=== PATIENT | female | born 1950 | race Caucasian/White ===

== ENCOUNTER 2017-04-02 12:49 | Observation (INO) | payer MEDICAID ==
[2017-04-02] VITALS (10 sets, daily range): BP systolic 103–140; BP diastolic 57–69; PULSE 55–60; RESP 16–20; TEMP 97–98.4; O2SAT 92–98
[~2017-04-02] VITALS: Ht 162.6 cm; Wt 80.0 kg
[~2017-04-02 12:49] MED LIST: ALBUAER3 INH; ASPI-110 PO; ATOR40TA16 PO; CETI10 PO; FENO48TA PO; FURO20TA PO; IPRASOL INH; METO25TA3 PO; NITR1SUB3 SL; OMEP20TA PO; TRAM50TA PO; VALS1TAB64 PO
--- NOTE | 2017-04-02 13:54 | PD ---
HPI Chief Complaint: Chest Pain Time Seen by Provider: 13:32 Travel History International Travel<30 days: No Contact w/Intl Traveler<30days: No Traveled to known affect area: No History of Present Illness HPI 66yo F with PMH of CAD s/p cardiac stent presents to the ED with c/o left sided chest pain about an hour ago that started off as sharp but now is more dull, achy. Associated with sob. Denies any n/v, diaphoresis, radiation of pain. Pt also with 3 days of right sided abdominal pain. Denies any dysuria, hematuria, diarrhea. 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 Took 81mg of aspirin. PFSH Past Medical History Cancer: Yes (SKIN) Cardiac Catheterization: Yes (4 STENTS PLACED) Cardiovascular Problems: Yes High Cholesterol: Yes Chest Pain: Yes COPD: Yes Cerebrovascular Accident: Yes (TIA X 3) Coronary Artery Disease: Yes Diabetes: No Diminished Hearing: No Endocrine: No Gastrointestinal Disorders: Yes (GERD, HX DIVERTICULITIS) GERD: Yes Genitourinary: No Hepatitis: No Hiatal Hernia: Yes Hypertension: Yes Immune Disorder: No Musculoskeletal: Yes (ARTHRITIS) Neurologic: Yes (HX TIA) Psychiatric: Yes (CLAUSTRAPHOBIA) Reproductive: No Respiratory: Yes (COPD) Immunizations Current: No Thyroid Disease: No Tetanus Vaccination: > 5 Years Influenza Vaccination: No (allergies) Past Surgical History Abdominal Surgery: Yes (BOWEL RESECT X2, [employer], LEFT ING HERNIA REPAIR) AICD: No Body Medical Devices: CARDIAC STENTS Cardiac Surgery: No Cholecystectomy: Yes Ear Surgery: No Endocrine Surgery: No Eye Surgery: No Genitourinary Surgery: No Gynecologic Surgery: Yes (TAHBSO) Hysterectomy: Yes Joint Replacement: Yes (RIGHT HIP) Oral Surgery: No Pacemaker: No Thoracic Surgery: No Other Surgery: Yes Family History Family Myocardial Infarction: No Social History Alcohol Use: No Tobacco Use: No (QUIT 02/2014) Substance Use: No Allergies-Medications (Allergen,Severity, Reaction): Coded Allergies: Pneumococcal Vaccine (Verified Allergy, Severe, swollen, 04/02/17) Flu Vaccine (Verified Allergy, Mild, swollen, 04/02/17) Ibuprofen (Verified Adverse Reaction, Severe, Rash, 04/02/17) raises liver enzymes as well Reported Meds & Prescriptions Reported Meds & Active Scripts Active Omeprazole 20 Mg Tab 20 Mg PO DAILY Valsartan 80 Mg Tab 80 Mg PO DAILY Furosemide 20 Mg Tab 20 Mg PO DAILY Reported Zofran (Ondansetron HCl) 4 Mg Tab 4 Mg .ROUTE Q6HR Hydrocodone-Acetaminophen 5-325 mg Tab 1 Tab .ROUTE Q4HR Isosorbide Mononitrate ER (Isosorbide Mononitrate) 30 Mg [place] 30 Mg .ROUTE Cetirizine (Cetirizine HCl) 10 Mg Tab 10 Mg PO DAILY PRN Aspirin 81 (Aspirin) 81 Mg Tabdr 81 Mg PO DAILY Tramadol (Tramadol HCl) 50 Mg Tab 50 Mg PO Q6HR PRN Metoprolol Tartrate 25 Mg Tab 25 Mg PO BID Duoneb (Ipratropium-Albuterol Neb) 0.5-2.5 Mg/3 Ml Neb 1 Nebule INH Q4HR NEB Fenofibrate 48 Mg Tab 48 Mg PO DAILY Proair Hfa 8.5 GM Inh (Albuterol Sulfate) 90 Mcg/Act Aer 2 Puff INH Q4-6H PRN 108 mcg/actuation Atorvastatin (Atorvastatin Calcium) 40 Mg Tab 40 Mg PO HS Review of Systems Except as stated in HPI: all other systems reviewed are Neg Physical Exam Narrative GENERAL: 66yo F not in distress. SKIN: Focused skin assessment warm/dry. HEAD: Atraumatic. Normocephalic. CARDIOVASCULAR: Regular rate and rhythm. No murmur appreciated. RESPIRATORY: No accessory muscle use. Clear to auscultation. Breath sounds equal bilaterally. GASTROINTESTINAL: Abdomen soft, +TTP RUQ and RLQ. No rebound tenderness or guarding. MUSCULOSKELETAL: No obvious deformities. No clubbing. No cyanosis. No edema. NEUROLOGICAL: Awake and alert. No obvious cranial nerve deficits. Motor grossly within normal limits. Normal speech. PSYCHIATRIC: Appropriate mood and affect; insight and judgment normal. Data Data Last Documented VS Vital Signs Date Time Temp Pulse Resp B/P Pulse Ox O2 Delivery O2 Flow Rate FiO2 04/02/17 15:35 97.8 60 17 130/62 98 Room Air Orders Electrocardiogram (04/02/17 ) Basic Metabolic Panel (Bmp) (04/02/17 13:46) Ckmb (Isoenzyme) Profile (04/02/17 13:46) Complete Blood Count With Diff (04/02/17 13:46) Magnesium (Mg) (04/02/17 13:46) Prothrombin Time / Inr (Pt) (04/02/17 13:46) Act Partial Throm Time (Ptt) (04/02/17 13:46) Troponin I (04/02/17 13:46) Chest, Single Ap (04/02/17 13:46) Ecg Monitoring (04/02/17 13:46) Bilateral Bp Monitoring (04/02/17 13:46) Iv Access Insert/Monitor (04/02/17 13:46) Oximetry (04/02/17 13:46) Oxygen Administration (04/02/17 13:46) Aspirin (Aspirin) (04/02/17 14:00) Sodium Chloride 0.9% Flush (Ns Flush) (04/02/17 14:00) Ct Abd/Pel W Iv Contrast(Rout) (04/02/17 ) Aspirin Chew (Aspirin Chew) (04/02/17 14:00) Urinalysis - C+S If Indicated (04/02/17 13:54) CKMB (04/02/17 13:11) CKMB% (04/02/17 13:11) Iohexol 350 Inj (Omnipaque 350 Inj) (04/02/17 15:38) Morphine Inj (Morphine Inj) (04/02/17 16:15) Admit Order (Ed Use Only) (04/02/17 16:28) Labs Laboratory Tests Test 04/02/17 13:11 White Blood Count 8.9 TH/MM3 Red Blood Count 4.32 MIL/MM3 Hemoglobin 13.2 GM/DL Hematocrit 38.0 % Mean Corpuscular Volume 87.8 FL Mean Corpuscular Hemoglobin 30.5 PG Mean Corpuscular Hemoglobin 34.7 % Concent Red Cell Distribution Width 13.7 % Platelet Count 275 TH/MM3 Mean Platelet Volume 7.9 FL Neutrophils (%) (Auto) 57.4 % Lymphocytes (%) (Auto) 31.6 % Monocytes (%) (Auto) 6.5 % Eosinophils (%) (Auto) 4.0 % Basophils (%) (Auto) 0.5 % Neutrophils # (Auto) 5.1 TH/MM3 Lymphocytes # (Auto) 2.8 TH/MM3 Monocytes # (Auto) 0.6 TH/MM3 Eosinophils # (Auto) 0.4 TH/MM3 Basophils # (Auto) 0.0 TH/MM3 CBC Comment DIFF FINAL Differential Comment Prothrombin Time 10.6 SEC Prothromb Time International 1.0 RATIO Ratio Activated Partial 28.5 SEC Thromboplast Time Urine Color COLORLESS Urine Turbidity CLEAR Urine pH 5.5 Urine Specific [place] 1.001 Urine Protein NEG mg/dL Urine Glucose (UA) NEG mg/dL Urine Ketones NEG mg/dL Urine Occult Blood NEG Urine Nitrite NEG Urine Bilirubin NEG Urine Urobilinogen LESS THAN 2.0 MG/DL Urine Leukocyte Esterase NEG Urine RBC LESS THAN 1 /hpf Urine WBC LESS THAN 1 /hpf Urine Squamous Epithelial <1 /hpf Cells Microscopic Urinalysis Comment CULT NOT INDICATED Sodium Level 142 MEQ/L Potassium Level 3.9 MEQ/L Chloride Level 106 MEQ/L Carbon Dioxide Level 29.4 MEQ/L Anion Gap 7 MEQ/L Blood Urea Nitrogen 14 MG/DL Creatinine 0.77 MG/DL Estimat Glomerular Filtration 75 ML/MIN Rate Random Glucose 89 MG/DL Calcium Level 9.5 MG/DL Magnesium Level 2.0 MG/DL Total Creatine Kinase 129 U/L Creatine Kinase MB 1.7 NG/ML Troponin I LESS THAN 0.02 NG/ML MDM Medical Decision Making Medical Screen Exam Complete: Yes Emergency Medical Condition: Yes Interpretation(s) EKG: Sinus bradycardia at 58bpm. Normal axis. No ST segment elevation or depression Differential Diagnosis ACS vs. pneumonia vs. colitis vs. appendicitis Narrative Course 66yo F with CAD s/p cardiac stent here with left sided chest pain. Started when she bend down and it was sharp in the beginning but it is more achy now. Labs reviewed, no leukocytosis. Troponin negative. CXR showed stable left lung atelectasis versus scarring. No acute cardiopulmonary disease. Pt also with secondary complaint of right abdominal pain. UA negative. CTa/p showed diverticulosis without diverticulitis. Small anterior abdominal wall hernia Cystic mass in left kidney that is increase in size from prior. Informed pt about this and recommend outpatient renal mass CT or MRI to evaluate for enhancement. Pt reevaluated after morphine and abdominal pain and chest pain are gone. I am more concern with her chest pain and her last stress test was at least a year ago. Will do serial EKG and cardiac enzyme in chest pain center. Diagnosis Primary Impression: Chest pain Qualified Code: R07.9 - Chest pain, unspecified type Admitting Information Admitting Physician Requests: Observation Additional Instructions: Please follow up with your PMD regarding possible renal mass CT or MRI to evaluate for enhancement of the left kidney cystic mass. Scripts Nitroglycerin SL 0.4 Mg Subl0.4 Mg SL DIRECTED PRN (CHEST PAIN) #100 TAB.SL Ref 0 ONE TABLET UNDER THE TONGUE NEEDED FOR CHEST PAIN, MAY REPEAT EVERY FIVE MINUTES FOR A TOTAL OF 3 DOSES OR CALL 911 IF NO RELIEF Prov:Aleta Spann 04/03/17 Tatiana Dinh DO Apr 02, 2017 13:54
[2017-04-02] MEDS ORDERED: SODIUM CHLORIDE 0.9% FLUSH 10 ML FLUSH IVF PRN (14:00)
[2017-04-02] MEDS ORDERED: ASPIRIN 325 MG TAB PO ONE (14:00)
[2017-04-02] MEDS ORDERED: ASPIRIN 81 MG CHEW TAB CHEW ONE (14:00)
--- NOTE | 2017-04-02 14:16 | RADRPT ---
EXAM DATE/TIME: 04/02/2017 13:52 [facility] COMPARISON: CHEST SINGLE AP, October 31, 2015, 18:44. INDICATIONS : Chest pain. MEDICAL HISTORY : None. SURGICAL HISTORY : Stents ENCOUNTER: Initial ACUITY: 1 day PAIN SCORE: 4/10 LOCATION: Left chest FINDINGS: Minimal airspace disease at the left lung base consistent with atelectasis or scarring unchanged from prior exam. Cardiomegaly some contours are within normal limits. The remainder of the exam is unchan ged. CONCLUSION: 1. Stable left lung base atelectasis versus scarring. 2. No acute cardiopulmonary disease. Rodger Castellanos MD on April 02, 2017 at 14:11 Board Certified Radiologist. This report was verified electronically.
[2017-04-02 14:21] LABS: AUTOMATED NEUTROPHIL # 5.1 TH/MM3 (1.8-7.7); BASOPHIL % 0.5 % (0.0-2.0); EOSINOPHIL # 0.4 TH/MM3 (0-0.4); HEMO FLAGS DIFF FINAL; LYMPH % 31.6 % (9.0-44.0); LYMPHOCYTE # 2.8 TH/MM3 (1.0-4.8); MEAN CELL VOLUME 87.8 FL (80.0-100.0); MEAN CORPUSCULAR HEMOGLOBIN 30.5 PG (27.0-34.0); MEAN CORPUSCULAR HGB CONC 34.7 % (32.0-36.0); MONO % 6.5 % (0.0-8.0); NEUT % 57.4 % (16.0-70.0); PLATELET COUNT 275 TH/MM3 (150-450); RED BLOOD COUNT 4.32 MIL/MM3 (4.00-5.30); RED CELL DISTRIBUTION WIDTH 13.7 % (11.6-17.2); WHITE BLOOD COUNT 8.9 TH/MM3 (4.0-11.0)
[2017-04-02 14:22] LABS: BLOOD, URINE NEG (NEG); COMMENT (UR) CULT NOT INDICATED; CULTURE IF INDICATED CULT NOT INDICATED; GLUCOSE,URINE NEG (NEG); KETONE, URINE NEG (NEG); NITRITE,URINE NEG (NEG); PH, URINE 5.5 (5.0-8.5); SQUAMOUS EPITHELIAL CELL URINE <1 /hpf (0-5); URINE COLOR COLORLESS (YELLW/STRAW)
[2017-04-02 14:29] LABS: APTT (PATIENT) 28.5 SEC (24.3-30.1); PROTHROMBIN TIME - PATIENT 10.6 SEC (9.8-11.6)
[2017-04-02 14:37] LABS: ANION GAP 7 MEQ/L (5-15); BICARBONATE 29.4 MEQ/L (21.0-32.0); BLOOD UREA NITROGEN 14 MG/DL (7-18); CHLORIDE 106 MEQ/L (98-107); GLOMERULAR FILTRATION RATE 75 ML/MIN (>89); POTASSIUM 3.9 MEQ/L (3.5-5.1); SODIUM (NA) 142 MEQ/L (136-145)
[2017-04-02 14:40] LABS: CREATINE KINASE 129 U/L (26-192)
[2017-04-02 14:52] LABS: CKMB 1.7 NG/ML (0.5-3.6)
[2017-04-02] MEDS ORDERED: IOHEXOL 350 MG/ML 10 ML VIAL (for RAD DIAG) IV ONE (15:38)
[2017-04-02] MEDS ORDERED: MORPHINE SULFATE 4 MG/ML INJ IV PUSH ONE (16:15)
--- NOTE | 2017-04-02 16:34 | RADRPT ---
EXAM DATE/TIME: 04/02/2017 15:23 [facility] COMPARISON: CT ABDOMEN & PELVIS W CONTRAST, August 31, 2014, 2:49. INDICATIONS : Bilateral lower quadrant pain for 3 days. IV CONTRAST: 94 cc Omnipaque 350 (iohexol) IV ORAL CONTRAST: No oral contrast ingested. RADIATION DOSE: 21.95 CTDIvol (mGy) MEDICAL HISTORY : Hypertension. Chronic obstructive pulmonary disease. SURGICAL HISTORY : Hysterectomy. Appendectomy.Cholecystectomy.Bowel resection, inguinal hernia repair ENCOUNTER: Initial ACUITY: 3 days PAIN SCALE: 4/10 LOCATION: Bilateral lower quadrant TECHNIQUE: Volumetric scanning of the abdomen and pelvis was performed. Using automated exposure control and ad justment of the mA and/or kV according to patient size, radiation dose was kept as low as reasonably achievable to obtain optimal diagnostic quality images. FINDINGS: LOWER LUNGS: The visualized lower lungs are clear. LIVER: Homogeneous density without lesion. There is no dilation of the biliary tree. Gallbladder is surgica lly absent. SPLEEN: Normal size without lesion. PANCREAS: Within normal limits. KIDNEYS: There is a 2.4 x 2.3 cm indeterminate density cystic mass arising from the mid left kidney measuring 32 Hounsfield units. This is slightly increased in size from 2.0 x 2.0 cm on prior exam. Subcentimete r cystic lesion in the inferior pole of the left kidney is too small to fully characterize. kidneys a re otherwise symmetrical in size and demonstrate symmetrical enhancement without evidence for hydrone phrosis. ADRENAL GLANDS: Within normal limits. VASCULAR: There is no aortic aneurysm. BOWEL/MESENTERY: Postsurgical changes of prior appendectomy or and partial small bowel resection are noted. The bowel appears somewhat anterior to the anterior abdominal wall likely reflecting adhesions. Otherwise demon strate no evidence for obstruction or significant bowel wall thickening. There is moderate sigmoid an d scattered descending colonic diverticula without significant inflammatory change to suggest diverti culitis. ABDOMINAL WALL: There is a small periumbilical fat containing anterior abdominal hernia. Slightly more cephalad there is a second small mid anterior abdominal wall hernia with partial eventration of a small portion of the transverse colon. This is approximately 5 cm cephalad to the umbilicus. There is no significant i nflammatory changes or colonic wall thickening. RETROPERITONEUM: There is no lymphadenopathy. BLADDER: Bladder is moderately distended but otherwise unremarkable. REPRODUCTIVE: Uterus is surgically absent. INGUINAL: There is no lymphadenopathy or hernia. MUSCULOSKELETAL: There are no abnormal lytic or blastic bony lesions. Right hip arthroplasty in place. CONCLUSION: 1. Postsurgical features of prior appendectomy and partial small bowel resection without evidence for bowel obstruction. 2. Small anterior abdominal wall hernias with a small mid line hernia approximately 5 cm cephalad to the umbilicus with partial eventration of the transverse colon anterior wall. The colon does not appe ar abnormal in this region. Correlation with physical exam is recommended. 3. 2.4 x 2.3 cm indeterminate density cystic mass arising from the mid left kidney which has minimall y increased in size from 2.0 x 2.0 cm in 2014. Recommend renal mass CT or MRI examination to evaluate for enhancement. 4. Moderate sigmoid and scattered colonic diverticulosis without definitive evidence for diverticulit is. Rodger Castellanos MD on April 02, 2017 at 15:55 Board Certified Radiologist. This report was verified electronically.
--- NOTE | 2017-04-02 16:59 | EKG ---
Date Performed: 04/02/2017 Time Performed: 13:11:45 PTAGE: 66 years EKG: SINUS BRADYCARDIA BORDERLINE ECG PREVIOUS TRACING : 11/01/2015 00.24 No significant change from previous tracing noted. DOCTOR: Clay Boone Interpretating Date/Time 04/02/2017 16:55:43
[2017-04-02] MEDS ORDERED: ONDANSETRON HCL 4 MG/2 ML VIAL IV PRN (17:30)
[2017-04-02] MEDS ORDERED: NITROGLYCERIN 0.4 MG SL 25 TABS/BTL SL PRN (17:30)
[2017-04-02] MEDS ORDERED: ACETAMINOPHEN 500 MG CPLT PO PRN (17:30)
[2017-04-02 18:11] LABS: CREATINE KINASE 113 U/L (26-192)
[2017-04-02 18:24] LABS: CKMB 2.1 NG/ML (0.5-3.6)
--- NOTE | 2017-04-02 18:33 | HHI.HP ---
HPI Primary Care Physician Kimberley Humphrey MD Chief Complaint Chest pain History of Present Illness 66-year-old female pertinent medical history of coronary artery disease including 4 cardiac stents, hyperlipidemia, hypertension, and TIA 3% emergency room for further evaluation of chest pain. Onset this afternoon while shopping. Location left anterior chest. Described as sharp pain initially then changing to a dull ache. No radiation of pain. Associated symptoms including dizziness, nausea, and diaphoresis. Precipitating factors with bending over and upon standing chest pain as stated above began. Endorses the same chest discomfort she had prior to cardiac catheterizations in 2004. Relieving factors IV pain medication provided the ER. 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 Reports a couple months ago she was scheduled for elective cardiac catheterization although was sick and had to be rescheduled. Since this time she has actually had no chest discomfort and was waiting for a regular cardiology appointment. Last stress test completed 1 year ago. ( Aleta Spann) Review of Systems General: Increasing fatigue 3 days. No weakness, fever, chills, recent illness , or change in appetite. HEENT: No [place], no vision changes, chronic nasal congestion, no drainage, no dysphasia CV: As stated above. Currently she is chest pain and pressure free. No intermittent leg pain and dizziness has since improved. RESP: History of COPD states COPD is stable on current inhaler regimen. No increasing cough or wheeze. No SOB. GI: Nausea has improved. Although endorses last evening she was nauseous throughout dinner. No bowel changes such as diarrhea, constipation, distention , melena, or blood in stool. last bowel movement this a.m. reports dull pain right lower quadrant. History of diverticulitis. : No dysuria, urgency, frequency, or hematuria EXT: No lower leg edema, no paraesthesias MS: Chronic right hip and right knee pain, 1 month right shoulder pain radiating to her neck and right arm, follows with pain management. Ambulates independently. NEURO: No difficulty with balance, LOC, motor/sensory deficits PSYCH: No anxiety, depression SKIN: No rashes, no concerning lesions (Aleta Spann) Past Family Social History Allergies: Coded Allergies: Pneumococcal Vaccine (Verified Allergy, Severe, swollen, 04/02/17) Flu Vaccine (Verified Allergy, Mild, swollen, 04/02/17) Ibuprofen (Verified Adverse Reaction, Severe, Rash, 04/02/17) raises liver enzymes as well Past Medical History CAD, 4 cardiac stents, GERD, diverticulitis, COPD, hyperlipidemia, hypertension , TIA 3, chronic right hip pain, chronic right knee pain Past Surgical History Bowel resections 2, cholecystectomy, left inguinal hernia repair, right hip appear, hysterectomy, appendectomy Reported Medications Active Omeprazole 20 Mg Tab 20 Mg PO DAILY Valsartan 80 Mg Tab 80 Mg PO DAILY Furosemide 20 Mg Tab 20 Mg PO DAILY Cetirizine (Cetirizine HCl) 10 Mg Tab 10 Mg PO DAILY PRN Aspirin 81 (Aspirin) 81 Mg Tabdr 81 Mg PO DAILY Tramadol (Tramadol HCl) 50 Mg Tab 50 Mg PO PRN EVERY 6 HOURS PRN Nitroglycerin SL (Nitroglycerin) 0.4 Mg Subl 0.4 Mg SL DIRECTED PRN ONE TABLET UNDER THE TONGUE NEEDED FOR CHEST PAIN, MAY REPEAT EVERY FIVE MINUTES FOR A TOTAL OF 3 DOSES OR CALL 911 IF NO RELIEF Metoprolol Tartrate 25 Mg Tab 25 Mg PO BID Duoneb (Ipratropium-Albuterol Neb) 0.5-2.5 Mg/3 Ml Neb 1 Nebule INH Q4HR when necessary NEB Fenofibrate 48 Mg Tab 48 Mg PO DAILY Proair Hfa 8.5 GM Inh (Albuterol Sulfate) 90 Mcg/Act Aer 2 Puff INH Q4-6H PRN 108 mcg/actuation Atorvastatin (Atorvastatin Calcium) 40 Mg Tab 40 Mg PO HS Imdur 30mg QD Amlodipine 10mg QD hydrocodone/acetaminophen 1 tablet Q4H prn moderate pain ondansetron 4mg po prn TAKES A DAILY INHALER-SHE DOES NOT REMEMBER NAME OF MEDICATION Active Ordered Medications Current Medications Medications (Trade) Dose Ordered Sig/Vivi Route Start Time Stop Time Status Last Admin (NS Flush) 2 ml UNSCH PRN IVF 04/02/17 14:00 04/02/17 14:00 (NS Flush) 2 ml BID IV FLUSH 04/02/17 21:00 (Tylenol) 500 mg Q4H PRN PO 04/02/17 17:30 (Zofran Inj) 4 mg Q6H PRN IV 04/02/17 17:30 (Nitrostat Sl) 0.4 mg Q5M PRN SL 04/02/17 17:30 (Aspirin) 325 mg DAILY PO 04/03/17 09:00 Family History MomCABG 4 age 87 did not have prior known coronary artery blockages, sister at age 75 coronary artery disease did not have prior known coronary artery blockages, is unsure of brother has coronary artery disease. Social History Known hypertension, coronary artery disease, hyperlipidemia. No known diabetes. Quit smoking 02/2014started smoking at age 16, wasn't until her late 20s she began to smoke 1 pack every 23 days. Denies any alcohol or illegal drug use. Ambulates independently, . Past cardiac testing 05/28-Cardiac catheterization (Dr. Zamudio)-75% occlusion of the smaller arteries area cannot be stented and she is being medically managed. 04/16/12-cardiac catheterizationstent to RCA 11/20/04-cardiac catheterization-stent to mid circumflex, distal RCA, [place]. Chemical stress test completed with Dr. Torre approximately one year ago-she reports test unremarkable (Aleta Spann) Physical Exam Vital Signs Vital Signs Date Time Temp Pulse Resp B/P Pulse Ox O2 Delivery O2 Flow Rate FiO2 04/02/17 17:46 98 21 04/02/17 17:00 97.7 59 18 132/67 Room Air 04/02/17 16:31 17 04/02/17 15:35 97.8 60 17 130/62 98 Room Air 04/02/17 13:55 97 Room Air 04/02/17 13:55 18 97 Room Air 04/02/17 13:54 58 18 118/69 97 Room Air 110/66 04/02/17 13:40 58 18 95 Room Air 04/02/17 12:52 98.1 60 16 140/61 94 Physical Exam GENERAL: Alert WN, WD, NAD, pleasant, , female who appears older than stated age. HEAD: NC, AT EYES: Sclera clear, conjunctiva without injection, pupils equal and round ENT: Mucous membranes pink and moist NECK: Supple, no masses, trachea midline CV: RRR, without murmur, rub, gallop, no JVD, S1-S2 no S3-S4. No carotid bruits. RESP: Diminished lungs throughout bilateral, no crackles, wheeze, rhonchi, symmetrical chest rise, nonlabored, able to speak in full sentences EXT: Pulses +24, no dependent edema MS: Normal tone 4 extremities, nontender, no obvious deformities, full range of motion NEURO: CN II through CN XII grossly intact, motor strength 5/5, gait WNL PSYCH: A+O 3, pleasant affect, appropriate speech, appropriate mood and affect , insight and judgment SKIN: Normal turgor, normal texture, no lesions, no rashes, brisk cap refill, even hair distribution Laboratory Laboratory Tests Test 04/02/17 13:11 White Blood Count 8.9 Red Blood Count 4.32 Hemoglobin 13.2 Hematocrit 38.0 Mean Corpuscular Volume 87.8 Mean Corpuscular Hemoglobin 30.5 Mean Corpuscular Hemoglobin 34.7 Concent Red Cell Distribution Width 13.7 Platelet Count 275 Mean Platelet Volume 7.9 Neutrophils (%) (Auto) 57.4 Lymphocytes (%) (Auto) 31.6 Monocytes (%) (Auto) 6.5 Eosinophils (%) (Auto) 4.0 Basophils (%) (Auto) 0.5 Neutrophils # (Auto) 5.1 Lymphocytes # (Auto) 2.8 Monocytes # (Auto) 0.6 Eosinophils # (Auto) 0.4 Basophils # (Auto) 0.0 CBC Comment DIFF FINAL Differential Comment Prothrombin Time 10.6 Prothromb Time International 1.0 Ratio Activated Partial 28.5 Thromboplast Time Urine Color COLORLESS Urine Turbidity CLEAR Urine pH 5.5 Urine Specific [place] 1.001 Urine Protein NEG Urine Glucose (UA) NEG Urine Ketones NEG Urine Occult Blood NEG Urine Nitrite NEG Urine Bilirubin NEG Urine Urobilinogen LESS THAN 2.0 Urine Leukocyte Esterase NEG Urine RBC LESS THAN 1 Urine WBC LESS THAN 1 Urine Squamous Epithelial <1 Cells Microscopic Urinalysis Comment CULT NOT INDICATED Sodium Level 142 Potassium Level 3.9 Chloride Level 106 Carbon Dioxide Level 29.4 Anion Gap 7 Blood Urea Nitrogen 14 Creatinine 0.77 Estimat Glomerular Filtration 75 Rate Random Glucose 89 Calcium Level 9.5 Magnesium Level 2.0 Total Creatine Kinase 129 Creatine Kinase MB 1.7 Troponin I LESS THAN 0.02 (Aleta Spann) Result Diagram: 04/02/17 1311 04/02/17 1311 Imaging Last Impressions Chest X-Ray 04/02/17 1346 Signed Impressions: Service Date/Time: Sunday, April 02, 2017 13:52 - CONCLUSION: 1. Stable left lung base atelectasis versus scarring. 2. No acute cardiopulmonary disease. Rodger Castellanos MD Abdomen/Pelvis CT 04/02/17 0000 Signed Impressions: Service Date/Time: Sunday, April 02, 2017 15:23 - CONCLUSION: 1. Postsurgical features of prior appendectomy and partial small bowel resection without evidence for bowel obstruction. 2. Small anterior abdominal wall hernias with a small mid line hernia approximately 5 cm cephalad to the umbilicus with partial eventration of the transverse colon anterior wall. The colon does not appear abnormal in this region. Correlation with physical exam is recommended. 3. 2.4 x 2.3 cm indeterminate density cystic mass arising from the mid left kidney which has minimally increased in size from 2.0 x 2.0 cm in 2014. Recommend renal mass CT or MRI examination to evaluate for enhancement. 4. Moderate sigmoid and scattered colonic diverticulosis without definitive evidence for diverticulitis. Rodger Castellanos MD Course EKGs First EKG normal sinus bradycardic rhythm, normal axis, no ST or T-segment changes (Aleta Spann) Assessment and Plan Assessment and Plan #1 Chest painadmitted to chest pain center. Will rule out with 3 sets of cardiac enzymes, EKG, and monitored overnight. Will be seen and evaluated by Dr. Fred Saxena in a.m. and will also call patient's duty manager . #2 History of coronary artery diseasecontinue Imdur, aspirin, metoprolol, and atorvastatin #3 Hypertensioncontinue amlodipine, furosemide, and valsartan #4 COPDreorder daily inhaler after contacting her as she does not remember name of medication, albuterol when necessary #5 Chronic paincontinue tramadol and hydrocodone/acetaminophen 04/03/17 0915-call out to Dr. Davis. Spoke with office staff Cherri. Stating Dr. Davis planned cardiac catheterization in November 2016 for unstable angina. Patient was placed on antibiotics for URI by her primary care provider around the same time, therefore she was told to complete antibiotics the reschedule cardiac catheterization. Patient now waiting for [facility] referral and has not been seen since November 2016. 04/03/17 0930-return call from Dr. Davis. Okay for discharge, patient scheduled for an appointment tomorrow a.m. requesting nitroglycerin 0.4 mg sublingual prescription to be provided upon discharge. Instructions for use given. Instructed to return to ER if chest pain returns. (Aleta Spann) Assessment and Plan Enzymes and exam are normal. ECG shows borderline ST segment changes. Will discuss with her duty manager Dr. Davis (Fred Saxena MD) Aleta Spann Apr 02, 2017 18:33 Fred Saxena MD Apr 03, 2017 07:41
[2017-04-02] MEDS ORDERED: ALBUTEROL SULFATE 90 MCG/ACT HFA 8 GM INHALER INH PRN (18:45)
[2017-04-02] MEDS ORDERED: CETIRIZINE HCL 10 MG TAB PO PRN (18:45)
[2017-04-02] MEDS ORDERED: ACETAMINOPHEN/HYDROcodone 325 MG/5 MG TAB PO PRN (19:15)
[2017-04-02] MEDS ORDERED: traMADol HCL 50 MG TAB PO PRN (19:15)
[2017-04-02] MEDS ORDERED: ISOS30TA3 (19:30)
[2017-04-02] MEDS ORDERED: HYDR-3516 (19:32)
[2017-04-02] MEDS ORDERED: ZOFR4TAB (19:33)
[2017-04-02] MEDS ORDERED: ATORVASTATIN 40 MG TAB PO SCH (21:00)
[2017-04-02] MEDS: METOPROLOL TARTRATE 25 MG TAB PO SCH (21:36)
[2017-04-02] MEDS: SODIUM CHLORIDE 0.9% FLUSH 10 ML FLUSH IV FLUSH SCH (21:50)
[2017-04-02 22:30] LABS: CREATINE KINASE 117 U/L (26-192)
[2017-04-02 22:42] LABS: CKMB 1.2 NG/ML (0.5-3.6)
[2017-04-03] VITALS: BP 103/52; PULSE 53; PULSE 60; RESP 20; TEMP 97.8; O2SAT 94
[2017-04-03 04:00] VITALS: BP 111/66; PULSE 54; RESP 20; TEMP 97.6; O2SAT 94
[2017-04-03 08:00] VITALS: PULSE 56
[2017-04-03 08:02] VITALS: O2SAT 94
[2017-04-03] MEDS: SODIUM CHLORIDE 0.9% FLUSH 10 ML FLUSH IV FLUSH SCH (08:02)
[2017-04-03 08:05] VITALS: BP 123/60; PULSE 51; RESP 19; TEMP 96.1; O2SAT 96
[2017-04-03] MEDS: METOPROLOL TARTRATE 25 MG TAB PO SCH (08:09)
[2017-04-03] MEDS ORDERED: FENOFIBRATE 48 MG TAB PO SCH (09:00)
[2017-04-03] MEDS ORDERED: PANTOPRAZOLE SOD 20 MG DELAYED RELEASE TAB PO SCH (09:00)
[2017-04-03] MEDS ORDERED: FUROSEMIDE 20 MG TAB PO SCH (09:00)
[2017-04-03] MEDS ORDERED: ASPIRIN 325 MG TAB PO SCH (09:00)
[2017-04-03] MEDS ORDERED: VALSARTAN 80 MG TAB PO SCH (09:00)
[2017-04-03 09:30] VITALS: RESP 19
[2017-04-03] MEDS ORDERED: AMLO10TA2 (09:36)
[2017-04-03] MEDS ORDERED: NITR1SUB3 SL (10:17)
--- NOTE | 2017-04-03 10:21 | HHI.DCPOC ---
Discharge Care Plan Diagnosis: (1) Chest pain (2) Hypertension (3) Hx of coronary artery disease (4) Dyslipidemia Goals to Promote Your Health * To prevent worsening of your condition and complications * To maintain your health at the optimal level Directions to Meet Your Goals Take your medications as prescribed Follow your dietary instruction Follow activity as directed Keep your appointments as scheduled Take your immunizations and boosters as scheduled If your symptoms worsen call your PCP, if no PCP go to Urgent Care Center or Emergency Room Smoking is Dangerous to Your Health. Avoid second hand smoke Call the 24-hour hour crisis hotline for domestic abuse at [facility] Apr 03, 2017 10:21
[2017-04-03] MEDS ORDERED: MORPHINE SULFATE 4 MG/ML INJ IV ONE (11:00)
--- NOTE | 2017-04-03 13:55 | EKG ---
Date Performed: 04/02/2017 Time Performed: 17:29:34 PTAGE: 66 years EKG: SINUS BRADYCARDIA BORDERLINE ECG WARNING: DATA QUALITY MAY AFFECT INTERPRETATION PREVIOUS TRACING : 04/02/2017 13.11 Since previous tracing, no significant change noted DOCTOR: Fred Saxena Interpretating Date/Time 04/03/2017 13:55:00
--- NOTE | 2017-04-03 13:55 | EKG ---
Date Performed: 04/02/2017 Time Performed: 19:17:07 PTAGE: 66 years EKG: SINUS BRADYCARDIA BORDERLINE ECG PREVIOUS TRACING : 04/02/2017 17.29 Since previous tracing, no significant change noted DOCTOR: Fred Saxena Interpretating Date/Time 04/03/2017 13:54:48
== END 2017-04-03 14:01 | disposition home or self-care (01) ==
LOC: NEPE 12:49 → NEDA 16:29 → NEPHCDU 18:17
PROVIDERS: ADMIT Internal Medicine Interventional Cardiology; ATTEND Internal Medicine Interventional Cardiology
DX: R07.89 Other chest pain (principal); I25.10 Atherosclerotic heart disease of native coronary artery without angina pectoris; I10 Essential (primary) hypertension; J44.9 Chronic obstructive pulmonary disease, unspecified; E78.5 Hyperlipidemia, unspecified; K21.9 Gastro-esophageal reflux disease without esophagitis; E78.00 Pure hypercholesterolemia, unspecified; G89.29 Other chronic pain; M25.551 Pain in right hip; M25.561 Pain in right knee; M19.90 Unspecified osteoarthritis, unspecified site; Z86.73 Personal history of transient ischemic attack (TIA), and cerebral infarction without residual deficits; Z95.5 Presence of coronary angioplasty implant and graft; Z88.7 Allergy status to serum and vaccine; Z88.8 Allergy status to other drugs, medicaments and biological substances; Z79.82 Long term (current) use of aspirin; Z87.891 Personal history of nicotine dependence; Z96.641 Presence of right artificial hip joint
CPT/HCPCS: 71010; 74177; 80048; 81001; 82550; 82552; 83735; 84484; 85025; 85610; 85730; 93005; 96374; 99285; G0378; J2270; Q9967